=== PATIENT | female | born 1960 | race Caucasian/White ===

== ENCOUNTER 2017-05-13 19:08 | Emergency (ER) | payer SELFPAY ==
[2017-05-13] MEDS ORDERED: Aluminum Hydroxide/Magnesium Hydroxide Susp 30 ML Cup PO STA (19:34)
[2017-05-13] MEDS ORDERED: Polyethylene Glycol 3350 Powder 17 GM Packet PO ONE (19:41)
--- NOTE | 2017-05-13 19:47 | EDM.PDOC ---
ED HPI GENERAL MEDICAL PROBLEM - General Chief Complaint: Abdominal Pain Stated Complaint: ADB PAIN Time Seen by Provider: 05/13/17 19:30 Source of Information: Reports: Patient, Old Records History Limitations: Reports: No Limitations - History of Present Illness INITIAL COMMENTS - FREE TEXT/NARRATIVE: 57 yo obese female presents with epigastric to RUQ abdominal pain that began a couple hrs after eating at a [employer] today. No fever. Some nausea , now resolved. Has some mild constipation. Had been on omeprazole for GERD and had not taken it for a month until shortly before coming in to the ER tonight. Is feeling better on arrival with her pain down to a 1-2/10. Has had a pHx of RUQ abdominal pains for which she had a GB US that was negative. Has not had a HIDA scan or a surgical consult. Still has her gallbladder. Pain was intense for about 30 minutes. Onset: Today Onset Date: 05/13/17 Onset Time: 18:35 Duration: Minutes: Location: Reports: Abdomen (RUQ to epigastrium) Quality: Reports: Ache, Pressure Severity: Moderate Improves with: Reports: Other (Time? vs. ) Worsens with: Reports: Eating (? came on after eating.) Context: Reports: Other (Many risk factors for biliary dz. 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) (took a dose of her PPI) Epigastric pain Pain Score (Numeric/FACES): 3 - Related Data Allergies Allergy/AdvReac Type Severity Reaction Status Date / Time No Known Allergies Allergy Verified 10/02/16 05:39 Home Meds: Home Meds Ibuprofen 400 mg PO DAILY 05/13/17 [History] Omeprazole 20 mg DAILY 05/13/17 [History] atorvaSTATin [Lipitor] 10 mg PO BEDTIME 05/13/17 [History] metFORMIN [Glucophage XR] 500 mg PO BEDTIME 05/13/17 [History] Past Medical History Cardiovascular History: Reports: High Cholesterol Gastrointestinal History: Reports: Gastritis, GERD Genitourinary History: Reports: 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: Musculoskeletal History: Reports: Arthritis Endocrine/Metabolic History: Reports: Diabetes, Type II, Obesity/BMI 30+ - Infectious Disease History Infectious Disease History: Reports: Chicken Pox - Past Surgical History GI Surgical History: Reports: EGD Female Surgical History: Reports: Tubal Ligation Social & Family History - Family History Family Medical History: Noncontributory - Tobacco Use Smoking Status *Q: Never Smoker - Caffeine Use Caffeine Use: Reports: Soda - Recreational Drug Use Recreational Drug Use: No ED ROS GENERAL - Review of Systems Review Of Systems: See Below Constitutional: Reports: No Symptoms HEENT: Reports: No Symptoms Respiratory: Reports: No Symptoms Cardiovascular: Reports: No Symptoms GI/Abdominal: Reports: Abdominal Pain, Constipation, Nausea. Denies: Black Stool, Bloody Stool, Diarrhea, Distension, Hematemesis, Hematochezia, Melena, Stool Incontinence, Vomiting : Reports: No Symptoms Musculoskeletal: Reports: No Symptoms Skin: Reports: No Symptoms Neurological: Reports: No Symptoms ED EXAM, GI/ABD - Physical Exam Exam: See Below Exam Limited By: No Limitations General Appearance: Alert, WD/WN, No Apparent Distress, Obese Eyes: Bilateral: Normal Appearance Ears: Normal External Exam, Normal Canal, Hearing Grossly Normal Nose: Normal Inspection, Normal Mucosa, No Blood Throat/Mouth: Normal Inspection, Normal Lips, Normal Teeth, Normal Oropharynx, Normal Voice, No Airway Compromise Head: Atraumatic, Normocephalic Neck: Normal Inspection, Supple, Non-Tender Respiratory/Chest: No Respiratory Distress, Lungs Clear, Normal Breath Sounds, No Accessory Muscle Use, Chest Non-Tender Cardiovascular: Regular Rate, Rhythm, No Edema GI/Abdominal: Normal Bowel Sounds, Soft, No Distention, Tenderness (mild tenderness just to the R of the epigastrium.). No: Distention, Guarding, Rebound, Rigidity, Hepatomegaly, Splenomegaly, Hernia Back Exam: Normal Inspection Extremities: Normal Inspection, Normal Range of Motion, Non-Tender, No Pedal Edema Neurological: Alert, Oriented, CN II-XII Intact, Normal Cognition, No Motor/ Sensory Deficits Psychiatric: Normal Affect, Normal Mood Skin Exam: Warm, Dry, Intact, Normal Color, No Rash Lymphatic: No Adenopathy Course - Vital Signs Text/Narrative:: Maalox 30 ml po, Miralax 34 gm po Last Recorded V/S: Last Vital Signs Temp 36.5 C 05/13/17 19:09 Pulse 84 05/13/17 19:09 Resp 18 05/13/17 19:09 BP 147/76 H 05/13/17 19:09 Pulse Ox 100 05/13/17 19:09 - Orders/Labs/Meds Labs: Laboratory Tests 05/13/17 05/13/17 Range/Units 19:45 19:45 WBC 7.9 (4.5-12.0) X10-3/uL RBC 5.09 (3.23-5.20) x10(6)uL Hgb 13.7 (11.5-15.5) g/dL Hct 40.4 (30.0-51.3) % MCV 79.4 L (80-96) fL MCH 26.9 L (27.7-33.6) pg MCHC 33.9 (32.2-35.4) g/dL RDW 14.5 (11.5-15.5) % Plt Count 198 (125-369) X10(3)uL Sodium 136 (135-145) mmol/L Potassium 3.7 (3.5-5.3) mmol/L Chloride 104 (100-110) mmol/L Carbon Dioxide 25 (23-29) mmol/L BUN 16 (5-20) mg/dL Creatinine 0.5 L (0.6-1.3) mg/dL Est Cr Clr Drug Dosing 93.67 mL/min Estimated GFR (MDRD) > 60 (>60) BUN/Creatinine Ratio 32.0 H (9-20) Glucose 146 H (80-116) mg/dL Calcium 9.6 (8.6-10.2) mg/dL Total Bilirubin 0.5 (0.1-1.3) mg/dL AST 21 (5-27) IU/L ALT 21 (14-26) IU/L Alkaline Phosphatase 105 (56-112) IU/L Total Protein 7.6 (6.0-8.0) g/dL Albumin 4.3 (3.5-5.2) g/dL Globulin 3.3 g/dL Albumin/Globulin Ratio 1.3 Meds: Medications Discontinued Medications Generic Name Dose Route Start Last Admin Trade Name Freq PRN Reason Stop Dose Admin Al Hydroxide/Mg Hydroxide 30 ml 05/13/17 19:34 05/13/17 19:43 Mag-Al Susp PO 05/13/17 19:35 30 ml NOW STA Administration Polyethylene Glycol 34 gm 05/13/17 19:41 05/13/17 19:48 Miralax PO 05/13/17 19:42 34 gm ONETIME ONE Administration Departure - Departure Time of Disposition: 20:11 Disposition: Home, Self-Care 01 Condition: Good Clinical Impression: RUQ abdominal pain - Discharge Information Forms: ED Department Discharge
[2017-05-13 20:27] VITALS: BP 152/74
== END 2017-05-13 20:22 | disposition home or self-care (01) ==
LOC: FB.ED 19:08
DX: R10.11 Right upper quadrant pain (principal); M19.90 Unspecified osteoarthritis, unspecified site; E11.9 Type 2 diabetes mellitus without complications; E66.9 Obesity, unspecified; Z68.42 Body mass index [BMI] 45.0-49.9, adult; E78.00 Pure hypercholesterolemia, unspecified; K21.9 Gastro-esophageal reflux disease without esophagitis; Z98.51 Tubal ligation status; Z79.899 Other long term (current) drug therapy
CPT/HCPCS: 36415; 80053; 85027; 99284; A9270; 99283

== ENCOUNTER 2019-03-27 22:28 | Observation (INO) | payer SELFPAY ==
[2019-03-27] MEDS ORDERED: Ondansetron 8 MG Tab.DIS PO ONE (22:47)
[2019-03-27] MEDS ORDERED: Alum Hydroxide/Mag Hydroxide 15 ML, Lidocaine 2% 15 ML PO STA ×2 (22:48)
--- NOTE | 2019-03-27 22:54 | EDM.PDOC ---
ED HPI GENERAL MEDICAL PROBLEM - General Stated Complaint: STOMACH PAIN Time Seen by Provider: 03/27/19 22:28 Source of Information: Reports: Patient History Limitations: Reports: No Limitations - History of Present Illness INITIAL COMMENTS - FREE TEXT/NARRATIVE: 59 y.o. female came with her son to the ED due to sudden onset of RUQ and and mid upper abdominal pain with nausea, no vomiting. The pain goes around her right flank into her back. Last food intake at 6 pm. Pt had "female part surgery" in the past. No F/C, no trauma. Pt did not take any meds [employer]. Pt has 10 /10 pain at her RUQ of her abdomen, unable to find a comfortable position to help her pain. No CP, no SOB no other acute med issues. BP 141/83 RR 20 Pulse ox 100% on RA Temp 36.6 Pulse 70 Onset Date: 03/27/19 Onset Time: 20:00 Duration: Hour(s):, Getting Worse, Intermittent Location: Reports: Abdomen (epigastric, RUQ of abdomen) Quality: Reports: Burning, Dull Severity: Moderate Improves with: Reports: Medication Worsens with: Reports: Movement Context: Reports: Other Associated Symptoms: Reports: Loss of Appetite, Nausea/Vomiting Upper Abdomen Pain Score (Numeric/FACES): 5 - Related Data Allergies Allergy/AdvReac Type Severity Reaction Status Date / Time No Known Allergies Allergy Verified 03/27/19 23:18 Home Meds: Home Meds Ibuprofen 400 mg PO DAILY PRN 05/13/17 [History] Omeprazole 20 mg PO DAILY 05/13/17 [History] atorvaSTATin [Lipitor] 10 mg PO BEDTIME 05/13/17 [History] metFORMIN [Glucophage XR] 500 mg PO BEDTIME 05/13/17 [History] Past Medical History Cardiovascular History: Reports: High Cholesterol Gastrointestinal History: Reports: Gastritis, GERD Genitourinary History: Reports: None 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: Musculoskeletal History: Reports: Arthritis Endocrine/Metabolic History: Reports: Diabetes, Type II, Obesity/BMI 30+ - Infectious Disease History Infectious Disease History: Reports: Chicken Pox - Past Surgical History GI Surgical History: Reports: EGD Female Surgical History: Reports: Tubal Ligation Social & Family History - Family History Family Medical History: Noncontributory - Caffeine Use Caffeine Use: Reports: Soda ED ROS GENERAL - Review of Systems Review Of Systems: See Below Constitutional: Reports: No Symptoms HEENT: Reports: No Symptoms Respiratory: Reports: No Symptoms Cardiovascular: Reports: No Symptoms Endocrine: Reports: No Symptoms GI/Abdominal: Reports: Abdominal Pain : Reports: No Symptoms Musculoskeletal: Reports: No Symptoms Skin: Reports: No Symptoms Neurological: Reports: No Symptoms Psychiatric: Reports: No Symptoms Hematologic/Lymphatic: Reports: No Symptoms Immunologic: Reports: No Symptoms ED EXAM, GI/ABD - Physical Exam Exam: See Below Exam Limited By: No Limitations General Appearance: Alert, Moderate Distress, Obese (morbid) Eyes: Bilateral: Normal Appearance Ears: Normal External Exam Nose: Normal Inspection, Normal Mucosa Throat/Mouth: Normal Inspection, Normal Lips, Normal Voice, No Airway Compromise Head: Atraumatic, Normocephalic Neck: Normal Inspection, Supple, Non-Tender, Full Range of Motion Respiratory/Chest: No Respiratory Distress, Lungs Clear, Normal Breath Sounds, Chest Non-Tender Cardiovascular: Normal Peripheral Pulses, Regular Rate, Rhythm GI/Abdominal Exam: Tender (RUQ of abd. epigasric pain) (Female) Exam: Deferred Rectal (Female) Exam: Deferred Back Exam: Normal Inspection Extremities: Normal Inspection, Normal Range of Motion Neurological: Alert, Oriented, CN II-XII Intact, Normal Cognition Psychiatric: Normal Affect, Normal Mood Skin Exam: Warm, Dry, Intact, Normal Color Lymphatic: No Adenopathy Course - Vital Signs Text/Narrative:: 59 y.o. female came with her son to the ED due to sudden onset of RUQ and and mid upper abdominal pain with nausea, no vomiting. The pain goes around her right flank into her back. Last food intake at 6 pm. Pt had "female part surgery" in the past. No F/C, no trauma. Pt did not take any meds [employer]. Pt has 10 /10 pain at her RUQ of her abdomen, unable to find a comfortable position to help her pain. No CP, no SOB no other acute med issues. BP 141/83 RR 20 Pulse ox 100% on RA Temp 36.6 Pulse 70 PE: Obese 59 y.o. F with acute Mid upper and R upper abd.pain, no fever Imaging: US abd. limited: Cholelithiasis with distended gallbladder, GB wall prominence, pos Dhillon's sign, suggestive early cholecystitis CT abd: Distended GB, Hepatic Steatosis, old granulomatous disease Labs: WBC 12.1 LFT's nl, Alk phos was 120, however Impression: Cholelithiasis with early cholecystitis Tx: Gi cocktail, Zofran, Zosyn, Toradol, Dilaudid 1.30 am Consultation: , Surgeon: If pain free: D/C. 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 \\ Reexam: Christiano is better after 2 mg of Dilaudid Plan: Admit to Hospitalist, meds/surge Last Recorded V/S: Last Vital Signs Temp 36.8 C 03/28/19 08:00 Pulse 80 03/28/19 08:00 Resp 18 03/28/19 08:00 BP 129/71 03/28/19 08:00 Pulse Ox 92 L 03/28/19 08:00 - Orders/Labs/Meds Orders: Active Orders 24 hr Category Date Time Status Abdomen Ltd [US] Stat Exams 03/27/19 22:55 Taken Abdomen wo Cont [CT] Stat Exams 03/27/19 23:40 Taken Piperacillin/Tazobactam [Zosyn] 3.375 gm Med 03/28/19 01:45 Active Sodium Chloride 0.9% [Normal Saline] 50 ml IV Q6H Sodium Chloride 0.9% [Saline Flush] Med 03/28/19 01:37 Active 10 ml FLUSH ASDIRECTED PRN Peripheral IV Insertion Adult [OM.PC] Routine Oth 03/28/19 01:37 Ordered Medication Orders Piperacillin Sod/Tazobactam (Sod 3.375 gm/ Sodium Chloride) 50 mls @ 100 mls/ hr IV Q6H [facility] Last Admin: 03/28/19 08:19 Dose: 100 mls/hr Admin: 03/28/19 02:20 Dose: 100 mls/hr Morphine Sulfate (Morphine) 1 mg IVPUSH Q2H PRN PRN Reason: Pain (severe 7-10) Last Admin: 03/28/19 08:16 Dose: 1 mg Sodium Chloride (Saline Flush) 10 ml FLUSH ASDIRECTED PRN PRN Reason: Keep Vein Open Last Admin: 03/28/19 08:18 Dose: 10 ml Labs: Laboratory Tests 03/27/19 03/27/19 03/27/19 Range/Units 22:50 22:50 22:50 WBC 12.1 H (4.5-12.0) X10-3/uL RBC 5.22 H (3.23-5.20) x10(6)uL Hgb 14.0 (11.5-15.5) g/dL Hct 42.3 (30.0-51.3) % MCV 81.0 (80-96) fL MCH 26.9 L (27.7-33.6) pg MCHC 33.2 (32.2-35.4) g/dL RDW 14.4 (11.5-15.5) % Plt Count 220 (125-369) X10(3)uL MPV 11.3 H (7.4-10.4) fL Neut % (Auto) 62.0 (46-82) % Lymph % (Auto) 28.6 (13-37) % [place] % (Auto) 5.9 (4-12) % Eos % (Auto) 3 (1.0-5.0) % Baso % (Auto) 0 (0-2) % Neut # (Auto) 7.5 (1.6-8.3) # Lymph # (Auto) 3.5 (0.6-5.0) # [place] # (Auto) 0.7 (0.0-1.3) # Eos # (Auto) 0.4 (0.0-0.8) # Baso # (Auto) 0.0 (0.0-0.2) # Sodium 139 (135-145) mmol/L Potassium 4.0 (3.5-5.3) mmol/L Chloride 102 (100-110) mmol/L Carbon Dioxide 29 (21-32) mmol/L BUN 18 (7-18) mg/dL Creatinine 0.6 (0.55-1.02) mg/dL Est Cr Clr Drug Dosing TNP Estimated GFR (MDRD) > 60 (>60) BUN/Creatinine Ratio 30.0 H (9-20) Glucose 145 H (80-116) mg/dL Lactic Acid 1.4 (0.4-2.2) mmol/L Calcium 9.5 (8.6-10.2) mg/dL Total Bilirubin 0.5 (0.1-1.3) mg/dL Direct Bilirubin 0.13 (0.10-0.20) mg/dL AST 14 (5-25) IU/L ALT 26 (12-36) U/L Alkaline Phosphatase 120 H (56-112) IU/L Total Protein 7.6 (6.0-8.0) g/dL Albumin 4.0 (3.5-5.2) g/dL Amylase 32 (25-115) U/L Meds: Medications Generic Name Dose Route Start Last Admin Trade Name Amosq PRN Reason Stop Dose Admin Piperacillin Sod/Tazobactam 50 mls @ 100 mls/hr 03/28/19 01:45 03/28/19 08:19 Sod 3.375 gm/ Sodium Chloride IV 100 mls/hr Q6H [facility] Administration Morphine Sulfate 1 mg 03/28/19 03:06 03/28/19 08:16 Morphine IVPUSH 1 mg Q2H PRN Administration Pain (severe 7-10) Sodium Chloride 10 ml 03/28/19 01:37 03/28/19 08:18 Saline Flush FLUSH 10 ml ASDIRECTED PRN Administration Keep Vein Open Discontinued Medications Generic Name Dose Route Start Last Admin Trade Name Amosq PRN Reason Stop Dose Admin Al Hydroxide/Mg Hydroxide 15 0 ml 03/27/19 22:48 03/27/19 22:55 ml/ Lidocaine HCl 15 ml PO 03/27/19 22:49 30 ml ONETIME STA Administration Hydromorphone HCl 1 mg 03/28/19 00:25 03/28/19 00:31 Dilaudid IM 03/28/19 00:26 1 mg ONETIME STA Administration Hydromorphone HCl 2 mg 03/28/19 01:40 03/28/19 02:00 Dilaudid IM 03/28/19 01:41 2 mg ONETIME ONE Administration Ketorolac Tromethamine 60 mg 03/27/19 23:54 03/27/19 23:59 Toradol IM 03/27/19 23:55 60 mg ONETIME ONE Administration Ondansetron HCl 8 mg 03/27/19 22:47 03/27/19 22:55 Zofran Odt PO 03/27/19 22:48 8 mg ONETIME ONE Administration Departure - Departure Time of Disposition: 02:54 Disposition: Admitted As Inpatient 66 Condition: Good Clinical Impression: Cholelithiasis and cholecystitis without obstruction Qualifiers: Cholelithiasis location: gallbladder Cholecystitis acuity: unspecified acuity Qualified Code(s): K80.10 - Calculus of gallbladder with chronic cholecystitis without obstruction - Discharge Information - My Orders Last 24 Hours: My Active Orders 03/27/19 22:55 Abdomen Ltd [US] Stat 03/27/19 23:40 Abdomen wo Cont [CT] Stat 03/28/19 01:37 Sodium Chloride 0.9% [Saline Flush] 10 ml FLUSH ASDIRECTED PRN Peripheral IV Insertion Adult [OM.PC] Routine 03/28/19 01:45 Piperacillin/Tazobactam [Zosyn] 3.375 gm Sodium Chloride 0.9% [Normal Saline] 50 ml IV Q6H - Assessment/Plan Last 24 Hours: My Active Orders 03/27/19 22:55 Abdomen Ltd [US] Stat 03/27/19 23:40 Abdomen wo Cont [CT] Stat 03/28/19 01:37 Sodium Chloride 0.9% [Saline Flush] 10 ml FLUSH ASDIRECTED PRN Peripheral IV Insertion Adult [OM.PC] Routine 03/28/19 01:45 Piperacillin/Tazobactam [Zosyn] 3.375 gm Sodium Chloride 0.9% [Normal Saline] 50 ml IV Q6H
[2019-03-27] MEDS ORDERED: Ketorolac 60 MG/2 ML SDV IM ONE (23:54)
[2019-03-28] MEDS ORDERED: HYDROmorphone 2 MG/ML SDV IM STA (00:25)
[2019-03-28] MEDS ORDERED: HYDROmorphone 2 MG/ML SDV IM ONE (01:40)
[2019-03-28] MEDS: Piperacillin/Tazobactam 3.375 GM in Sodium Chloride 0.9% 50 ML IV SCH ×4 (02:20→20:01)
[2019-03-28] MEDS ORDERED: Morphine 2 MG/ML Syringe IVPUSH PRN ×2 (03:06→13:27)
[2019-03-28] MEDS: Sodium Chloride 0.9% 10 ML Syringe FLUSH PRN ×5 (08:18→20:29)
[2019-03-28] MEDS ORDERED: Succinylcholine 200 MG/10 ML MDV IV ONE (08:54)
[2019-03-28] MEDS ORDERED: Glycopyrrolate 0.2 MG/ML 5 ML MDV IV ONE (08:54)
[2019-03-28] MEDS ORDERED: fentaNYL 100 MCG/2 ML SDV IV ONE (08:54)
[2019-03-28] MEDS ORDERED: Midazolam 1 MG/ML 2 ML SDV IV ONE (08:54)
[2019-03-28] MEDS ORDERED: Propofol 200 MG/20 ML SDV IV ONE (08:54)
[2019-03-28] MEDS ORDERED: Rocuronium 100 MG/10 ML MDV IV ONE (08:54)
[2019-03-28] MEDS ORDERED: Dexamethasone 4 MG/ML 5 ML MDV IVPUSH ONE (08:54)
[2019-03-28] MEDS ORDERED: Lactated Ringers 1,000 ML IV ONE ×2 (08:54→10:32)
[2019-03-28] MEDS ORDERED: Ondansetron 4 MG/2 ML SDV IVPUSH ONE (08:54)
[2019-03-28] MEDS ORDERED: diphenhydrAMINE 50 MG/ML SDV IVPUSH ONE (08:54)
[2019-03-28] MEDS ORDERED: Neostigmine Methylsulfate 10 MG/10 ML MDV IVPUSH ONE (08:54)
[2019-03-28] MEDS ORDERED: Lactated Ringers 1,000 ML IV SCH (10:45)
--- NOTE | 2019-03-28 10:50 | PCM.CONS ---
H&P History of Present Illness - General Date of Service: 03/28/19 Admit Problem/Dx: Admission Diagnosis/Problem Admission Diagnosis/Problem Cholecystitis Source of Information: Patient History Limitations: Reports: No Limitations - History of Present Illness Initial Comments - Free Text/Narative: RUQ pain started again after having ribs last night. Presented to the ED and US and CT show cholecystitis and Cholelithiasis Onset of Symptoms: Reports: Gradual Duration of Symptoms: Reports: Other (Gradually worsening over the past 5 years ; not going away this time) Location: Reports: Abdomen (RUQ) Severity: Severe Improves with: Reports: None Upper Abdomen Pain Score (Numeric/FACES): 5 - Related Data Allergies/Adverse Reactions: Allergies Allergy/AdvReac Type Severity Reaction Status Date / Time No Known Allergies Allergy Verified 03/27/19 23:18 Home Medications: Home Meds Ibuprofen 400 mg PO DAILY PRN 05/13/17 [History] Omeprazole 20 mg PO DAILY 05/13/17 [History] atorvaSTATin [Lipitor] 10 mg PO BEDTIME 05/13/17 [History] metFORMIN [Glucophage XR] 500 mg PO BEDTIME 05/13/17 [History] Past Medical History Cardiovascular History: Reports: High Cholesterol Gastrointestinal History: Reports: Gastritis, GERD Genitourinary History: Reports: 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: Musculoskeletal History: Reports: Arthritis Endocrine/Metabolic History: Reports: Diabetes, Type II, Obesity/BMI 30+ - Infectious Disease History Infectious Disease History: Reports: Chicken Pox - Past Surgical History GI Surgical History: Reports: EGD Female Surgical History: Reports: Tubal Ligation Social & Family History - Family History Family Medical History: Noncontributory - Tobacco Use Smoking Status *Q: Never Smoker Second Hand Smoke Exposure: Yes - Caffeine Use Caffeine Use: Reports: Soda - Recreational Drug Use Recreational Drug Use: No H&P Review of Systems - Review of Systems: Review Of Systems: See Below Pulmonary: Reports: No Symptoms Cardiovascular: Reports: No Symptoms Genitourinary: Reports: No Symptoms Exam - Exam Exam: See Below - Vital Signs Vital Signs: Last Vital Signs Temp 98.2 F 03/28/19 08:00 Pulse 80 03/28/19 08:00 Resp 18 03/28/19 08:00 BP 129/71 03/28/19 08:00 Pulse Ox 92 L 03/28/19 08:00 Weight: 108.607 kg - Exam General: Alert, Oriented Lungs: Clear to Auscultation, Normal Respiratory Effort Cardiovascular: Regular Rate, Regular Rhythm GI/Abdominal Exam: Soft, Tender (in RUQ) - Patient Data Lab Results Last 24 hrs: Laboratory Results - last 24 hr 03/27/19 03/27/19 03/27/19 Range/Units 22:50 22:50 22:50 WBC 12.1 H (4.5-12.0) X10-3/uL RBC 5.22 H (3.23-5.20) x10(6)uL Hgb 14.0 (11.5-15.5) g/dL Hct 42.3 (30.0-51.3) % MCV 81.0 (80-96) fL MCH 26.9 L (27.7-33.6) pg MCHC 33.2 (32.2-35.4) g/dL RDW 14.4 (11.5-15.5) % Plt Count 220 (125-369) X10(3)uL MPV 11.3 H (7.4-10.4) fL Neut % (Auto) 62.0 (46-82) % Lymph % (Auto) 28.6 (13-37) % [place] % (Auto) 5.9 (4-12) % Eos % (Auto) 3 (1.0-5.0) % Baso % (Auto) 0 (0-2) % Neut # (Auto) 7.5 (1.6-8.3) # Lymph # (Auto) 3.5 (0.6-5.0) # [place] # (Auto) 0.7 (0.0-1.3) # Eos # (Auto) 0.4 (0.0-0.8) # Baso # (Auto) 0.0 (0.0-0.2) # Sodium 139 (135-145) mmol/L Potassium 4.0 (3.5-5.3) mmol/L Chloride 102 (100-110) mmol/L Carbon Dioxide 29 (21-32) mmol/L BUN 18 (7-18) mg/dL Creatinine 0.6 (0.55-1.02) mg/dL Est Cr Clr Drug Dosing TNP Estimated GFR (MDRD) > 60 (>60) BUN/Creatinine Ratio 30.0 H (9-20) Glucose 145 H (80-116) mg/dL Lactic Acid 1.4 (0.4-2.2) mmol/L Calcium 9.5 (8.6-10.2) mg/dL Total Bilirubin 0.5 (0.1-1.3) mg/dL Direct Bilirubin 0.13 (0.10-0.20) mg/dL AST 14 (5-25) IU/L ALT 26 (12-36) U/L Alkaline Phosphatase 120 H (56-112) IU/L Total Protein 7.6 (6.0-8.0) g/dL Albumin 4.0 (3.5-5.2) g/dL Amylase 32 (25-115) U/L Result Diagrams: 03/27/19 22:50 03/27/19 22:50 Imaging Impressions Last 24 hrs: CT and US reviewed Consult PN Assessment/Plan Procedures: Procedures C-REACTIVE PROTEIN (10/02/16) COMPLETE CBC AUTOMATED (05/13/17) COMPREHEN METABOLIC PANEL (05/13/17) CT LOWER EXTREMITY W/O DYE (10/02/16) EMERGENCY DEPT VISIT (05/13/17) EMERGENCY DEPT VISIT (10/02/16) ROUTINE VENIPUNCTURE (05/13/17) THER/PROPH/DIAG INJ SC/IM (10/02/16) X-RAY EXAM HIP UNI 2-3 VIEWS (10/02/16) (1) Cholelithiasis and cholecystitis without obstruction SNOMED Code(s): 09936080 Code(s): K80.10 - CALCULUS OF GALLBLADDER W CHRONIC CHOLECYST W/O OBSTRUCTION Current Visit: Yes Qualifiers: Cholelithiasis location: gallbladder Cholecystitis acuity: unspecified acuity Qualified Code(s): K80.10 - Calculus of gallbladder with chronic cholecystitis without obstruction Problem List Initiated/Reviewed/Updated: Yes My Orders Last 24 Hours: My Active Orders 03/28/19 10:32 Lactated Ringers [Ringers, Lactated] 1,000 ml IV BOLUS 03/28/19 10:45 Lactated Ringers [Ringers, Lactated] 1,000 ml IV ASDIRECTED Plan: Will proceed with lap barb today. reviewed the procedure, risks and complications. Consent obtained
[2019-03-28] MEDS ORDERED: Acetaminophen/HYDROcodone 325-5 MG Tab PO PRN (13:25)
--- NOTE | 2019-03-28 13:25 | PCM.OPNOTE ---
- General Post-Op/Procedure Note Date of Surgery/Procedure: 03/28/19 Operative Procedure(s): Lap Maggy Findings: above Pre Op Diagnosis: Acute cholecystitis and Cholelithiasis Post-Op Diagnosis: Same Anesthesia Technique: General ET Tube Primary Surgeon: Sage Addison Anesthesia Provider: Nasreen Harvey Pathology: GB EBL in mLs: 25 Complications: none Condition: Stable
--- NOTE | 2019-03-28 16:02 | OR ---
DATE OF OPERATION: 03/28/2019 SURGEON: Sage Addison MD PREOPERATIVE DIAGNOSES: Acute cholecystitis and cholelithiasis. POSTOPERATIVE DIAGNOSES: Acute cholecystitis and cholelithiasis. PROCEDURE: Laparoscopic cholecystectomy. ANESTHESIA: General. PROCEDURE IN DETAIL: The patient was brought to the operating room where general endotracheal anesthesia was administered. Her abdomen was prepped with ChloraPrep and draped sterilely. An infraumbilical incision was made and extended into the peritoneal cavity without difficulty. The Alexia cannulator was introduced and pneumoperitoneum obtained. The remaining three 5 mm ports were placed in the usual positions. The patient was placed in reverse Trendelenburg position and rotated to the left. The gallbladder was large, tense, and firm, and could not be grasped. Therefore, it was aspirated with the trocar and 90 mL of yellowish bile removed. Some of this was sent for culture. The gallbladder was then grasped and retracted cephalad. There was a fair amount of inflammation present at the base of the gallbladder that was carefully dissected free with blunt dissection, and connective tissue cauterized with electrocautery. The cystic duct and an enlarged cystic duct node were present that was doubly clipped proximally and once distally and then transected. This aided in visualization of the lower portion of the gallbladder. I was able to isolate the cystic duct circumferentially and dissect the base of the gallbladder free. The cystic duct was milked back into the gallbladder. The cystic duct was then doubly clipped proximally and once distally and then transected. A small stone fragment was present in the cystic duct that was suctioned. The gallbladder was then removed from the bed of the liver which was fairly difficult because of being fairly densely adhesed and plane not always clear to see. This was removed eventually and a posterior branch of the cystic artery was doubly clipped proximally and distally and then transected. No bile leakage occurred during removal of the gallbladder. This was then brought out through the umbilical port site. The right upper quadrant was thoroughly irrigated and inspected. There was some oozing that was controlled with electrocautery near the fundus where the gallbladder was. I did place a Nu-Knit Surgicel here. Ports were removed under direct vision and remained hemostatic. Umbilical fascia was closed with [id number] 0 Vicryl. Skin was closed with 4-0 Vicryl subcuticular sutures. Benzoin and Steri-Strips were placed and Band- Aids applied. The patient tolerated the procedure well. Estimated blood loss 25 mL. She returned to Postanesthesia in stable condition. /[id number] JOSS/CLARY
[2019-03-28] MEDS: Lactated Ringers 1,000 ML IV SCH (19:40)
[2019-03-29] MEDS: Piperacillin/Tazobactam 3.375 GM in Sodium Chloride 0.9% 50 ML IV SCH ×2 (02:17→07:52)
[2019-03-29] MEDS: Sodium Chloride 0.9% 10 ML Syringe FLUSH PRN ×3 (02:17→07:53)
[2019-03-29] MEDS ORDERED: Acetaminophen 325 MG Tab PO PRN (04:24)
[2019-03-29] MEDS: Lactated Ringers 1,000 ML IV SCH (06:01)
--- NOTE | 2019-03-29 07:13 | PCM.SURGPN ---
- General Info Date of Service: 03/29/19 POD#: 1 Functional Status: Reports: Pain Controlled, Tolerating Diet, Ambulating, Urinating - Review of Systems General: Reports: No Symptoms Gastrointestinal: Reports: No Symptoms. Denies: Abdominal Pain - Patient Data Vitals - Most Recent: Last Vital Signs Temp 99.1 F 03/29/19 04:20 Pulse 80 03/29/19 04:20 Resp 16 03/29/19 04:20 BP 89/47 L 03/29/19 04:20 Pulse Ox 91 L 03/29/19 04:20 Weight - Most Recent: 108.607 kg I&O - Last 24 Hours: Intake & Output 03/28/19 03/29/19 03/29/19 22:59 06:59 14:59 Intake Total 1050 908 Balance 1050 908 Med Orders - Current: Current Medications Acetaminophen (Tylenol) 650 mg PO Q4H PRN PRN Reason: Pain Last Admin: 03/29/19 04:40 Dose: 650 mg Hydrocodone Bitart/Acetaminophen ([place] 325-5 Mg) 1 tab PO Q4H PRN PRN Reason: Pain (mild 1-3) Piperacillin Sod/Tazobactam (Sod 3.375 gm/ Sodium Chloride) 50 mls @ 100 mls/ hr IV Q6H [facility] Last Admin: 03/29/19 02:17 Dose: 100 mls/hr Lactated Ringer's (Ringers, Lactated) 1,000 mls @ 125 mls/hr IV ASDIRECTED [facility] Last Admin: 03/29/19 06:01 Dose: 125 mls/hr Morphine Sulfate (Morphine) 2 mg IVPUSH Q2H PRN PRN Reason: Pain (severe 7-10) Sodium Chloride (Saline Flush) 10 ml FLUSH ASDIRECTED PRN PRN Reason: Keep Vein Open Last Admin: 03/29/19 02:50 Dose: 10 ml Discontinued Medications Al Hydroxide/Mg Hydroxide 15 (ml/ Lidocaine HCl 15 ml) 0 ml PO ONETIME STA Stop: 03/27/19 22:49 Last Admin: 03/27/19 22:55 Dose: 30 ml Hydromorphone HCl (Dilaudid) 1 mg IM ONETIME STA Stop: 03/28/19 00:26 Last Admin: 03/28/19 00:31 Dose: 1 mg Hydromorphone HCl (Dilaudid) 2 mg IM ONETIME ONE Stop: 03/28/19 01:41 Last Admin: 03/28/19 02:00 Dose: 2 mg Lactated Ringer's (Ringers, Lactated) 1,000 mls @ 150 mls/hr IV ASDIRECTED [place] Lactated Ringer's (Ringers, Lactated) 1,000 mls @ 999 mls/hr IV BOLUS ONE Stop: 03/28/19 11:32 Last Admin: 03/28/19 10:49 Dose: 999 mls/hr Ketorolac Tromethamine (Toradol) 60 mg IM ONETIME ONE Stop: 03/27/19 23:55 Last Admin: 03/27/19 23:59 Dose: 60 mg Morphine Sulfate (Morphine) 1 mg IVPUSH Q2H PRN PRN Reason: Pain (severe 7-10) Last Admin: 03/28/19 08:16 Dose: 1 mg Ondansetron HCl (Zofran Odt) 8 mg PO ONETIME ONE Stop: 03/27/19 22:48 Last Admin: 03/27/19 22:55 Dose: 8 mg - Exam Wound/Incisions: Healing Well, Dressing Dry and Intact GI/Abdominal Exam: Soft, Non-Tender - Problem List & Annotations (1) Cholelithiasis and cholecystitis without obstruction SNOMED Code(s): 53859807 Code(s): K80.10 - CALCULUS OF GALLBLADDER W CHRONIC CHOLECYST W/O OBSTRUCTION Status: Acute Current Visit: Yes Qualifiers: Cholelithiasis location: gallbladder Cholecystitis acuity: unspecified acuity Qualified Code(s): K80.10 - Calculus of gallbladder with chronic cholecystitis without obstruction - Problem List Review Problem List Initiated/Reviewed/Updated: Yes - My Orders Last 24 Hours: Active Orders 24 hr Category Date Time Status May Shower [RC] ASDIRECTED Care 03/28/19 13:25 Active Oxygen Therapy [RC] PRN Care 03/28/19 13:25 Active RT Incentive Spirometry [RC] Q2HWA Care 03/28/19 13:25 Active Ready for Discharge [RC] PER UNIT ROUTINE Care 03/29/19 07:11 Ordered Vital Signs [RC] PER UNIT ROUTINE Care 03/28/19 13:25 Active Clear Liquid Diet [DIET] Diet 03/28/19 Dinner Active CULTURE ANAEROBIC [RM] Routine Lab 03/28/19 12:21 Ordered CULTURE ROUTINE + SMEAR [RM] Routine Lab 03/28/19 12:21 Ordered Acetaminophen [Tylenol] Med 03/29/19 04:24 Active 650 mg PO Q4H PRN Acetaminophen/HYDROcodone [[place] 325-5 MG] Med 03/28/19 13:25 Active 1 tab PO Q4H PRN Lactated Ringers [Ringers, Lactated] 1,000 ml Med 03/28/19 13:30 Active IV ASDIRECTED Morphine Med 03/28/19 13:27 Active 2 mg IVPUSH Q2H PRN Medication Orders Acetaminophen (Tylenol) 650 mg PO Q4H PRN PRN Reason: Pain Last Admin: 03/29/19 04:40 Dose: 650 mg Hydrocodone Bitart/Acetaminophen ([place] 325-5 Mg) 1 tab PO Q4H PRN PRN Reason: Pain (mild 1-3) Piperacillin Sod/Tazobactam (Sod 3.375 gm/ Sodium Chloride) 50 mls @ 100 mls/ hr IV Q6H [facility] Last Admin: 03/29/19 02:17 Dose: 100 mls/hr Admin: 03/28/19 20:01 Dose: 100 mls/hr Admin: 03/28/19 14:28 Dose: 100 mls/hr Admin: 03/28/19 08:19 Dose: 100 mls/hr Admin: 03/28/19 02:20 Dose: 100 mls/hr Lactated Ringer's (Ringers, Lactated) 1,000 mls @ 125 mls/hr IV ASDIRECTED [place] Last Admin: 03/29/19 06:01 Dose: 125 mls/hr Infusion: 03/29/19 03:40 Dose: 125 mls/hr Admin: 03/28/19 19:40 Dose: 125 mls/hr Morphine Sulfate (Morphine) 2 mg IVPUSH Q2H PRN PRN Reason: Pain (severe 7-10) Sodium Chloride (Saline Flush) 10 ml FLUSH ASDIRECTED PRN PRN Reason: Keep Vein Open Last Admin: 03/29/19 02:50 Dose: 10 ml Admin: 03/29/19 02:17 Dose: 10 ml Admin: 03/28/19 20:29 Dose: 10 ml Admin: 03/28/19 20:01 Dose: 10 ml Admin: 03/28/19 17:01 Dose: 10 ml Admin: 03/28/19 14:38 Dose: 10 ml Admin: 03/28/19 08:18 Dose: 10 ml - Assessment Assessment (Free Text/Narrative):: Doing well - Plan Plan (Free Text/Narrative):: Ready for discharge, will use OTC pain meds
[2019-03-29 10:29] VITALS: BP 95/54
== END 2019-03-29 08:55 | disposition home or self-care (01) ==
LOC: FB.ED 22:28 → FB.MS 03-28 03:06
PROVIDERS: ADMIT Emergency Medicine; ATTEND Surgery
DX: K80.12 Calculus of gallbladder with acute and chronic cholecystitis without obstruction (principal); E11.9 Type 2 diabetes mellitus without complications; E78.00 Pure hypercholesterolemia, unspecified; K21.9 Gastro-esophageal reflux disease without esophagitis; M19.90 Unspecified osteoarthritis, unspecified site; E66.9 Obesity, unspecified; Z68.42 Body mass index [BMI] 45.0-49.9, adult; Z79.84 Long term (current) use of oral hypoglycemic drugs; Z79.899 Other long term (current) drug therapy
CPT/HCPCS: 00790-QZ; 36415; 74150; 76705; 80048; 80076; 82150; 83605; 85025; 87070; 87075; 87077; 87205; 88304; 94150; 96361; 96365; 96372; 96376; 99285; 99285-25; A9270-GY; G0378; J0131; J0330; J1100; J1170; J1200; J1885; J2250; J2270; J2405; J2543; J2704; J2710; J3010; J3490; J7050; J7120

== ENCOUNTER 2021-02-25 05:28 | Emergency (ER) | payer MEDICARE, OTHER ==
[2021-02-25] MEDS ORDERED: Acetaminophen/HYDROcodone 325-5 MG Tab PO ONE (05:29)
[2021-02-25] MEDS ORDERED: Sulfamethoxazole/Trimethoprim 800-160 MG Tab PO ONE (05:29)
--- NOTE | 2021-02-25 06:04 | EDM.PDOC ---
ED HPI GENERAL MEDICAL PROBLEM - General Chief Complaint: Upper Extremity Injury/Pain Stated Complaint: ARM Time Seen by Provider: 02/25/21 05:50 Source of Information: Reports: Patient History Limitations: Reports: No Limitations - History of Present Illness INITIAL COMMENTS - FREE TEXT/NARRATIVE: 61-year-old female who reports she awoke at 3 AM yesterday with pain in her left shoulder. The pain was worse with any movement of her shoulder and it has worsened over time to the point of where she cannot move her shoulder at all without severe pain. In fact, even at rest the pain is severe. She would rated as a 10/10. It is worse with palpation and with movement. There is no shortness of breath, neck or jaw pain. She has had similar type pain as this in the past and has been treated with a steroid shot with relief of her symptoms. There have been no fevers or chills. No other joint pain. She has normal sensation and normal function in her left hand. There is no back pain. No fevers or chills. She has been able to eat and drink normally but the pain is making her miserable and she cannot even sleep secondary to the pain. Ears been no trauma to the area. No repetitive use of the arm. There are no other associated signs or symptoms. There are no other modifying factors. Just as the patient was being discharged she did bring up that she had been having urgency, frequency and dysuria. She actually states is a question as "Will this medication make my urinary tract infection worse?". She has not been seen by any medical personnel for a urinary tract infection but she was just referring to the fact that she had symptoms of a UTI. She has no abdominal or back pain. Reports that the symptoms began 2-3 days ago Onset: Other (3 AM yesterday) Duration: Getting Worse Location: Reports: Upper Extremity, Left (Left shoulder) Quality: Reports: Ache, Sharp, Throbbing Severity: Severe Improves with: Reports: None Worsens with: Reports: Other (Palpation), Movement Context: Reports: Other (As above) Associated Symptoms: Reports: No Other Symptoms Treatments CRITICAL CARE SPECIALIST: Reports: Heat Therapy, NSAIDS (Ibuprofen) left shoulder Pain Score (Numeric/FACES): 10 - Related Data Allergies Allergy/AdvReac Type Severity Reaction Status Date / Time No Known Allergies Allergy Verified 03/27/19 23:18 Home Meds: Home Meds Ibuprofen 400 mg PO DAILY PRN 05/13/17 [History] Omeprazole 20 mg PO DAILY 05/13/17 [History] atorvaSTATin [Lipitor] 10 mg PO BEDTIME 05/13/17 [History] metFORMIN [Glucophage XR] 500 mg PO BEDTIME 05/13/17 [History] Acetaminophen/HYDROcodone [[place] 325-5 MG] 1 - 2 tab PO Q6H PRN #6 tab 02/25/21 [Rx] Sulfamethoxazole/Trimethoprim [Bactrim Ds Tablet] 1 each PO BID #4 tablet 02/25/21 [Rx] methylPREDNISolone [Medrol Dose Pack] 4 mg PO ASDIRECTED #1 dospk 02/25/21 [Rx] Past Medical History Cardiovascular History: Reports: High Cholesterol Gastrointestinal History: Reports: Gastritis, GERD Musculoskeletal History: Reports: Arthritis Endocrine/Metabolic History: Reports: Diabetes, Type II, Obesity/BMI 30+ - Infectious Disease History Infectious Disease History: Reports: Chicken Pox - Past Surgical History GI Surgical History: Reports: Cholecystectomy, EGD Female Surgical History: Reports: Tubal Ligation Musculoskeletal Surgical History: Reports: 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 Review of Systems - Review of Systems Review Of Systems: See Below Constitutional: Reports: No Symptoms Eyes: Reports: No Symptoms Ears: Reports: No Symptoms Nose: Reports: No Symptoms Mouth/Throat: Reports: No Symptoms Respiratory: Reports: No Symptoms Cardiovascular: Reports: No Symptoms GI/Abdominal: Reports: No Symptoms Genitourinary: Reports: Dysuria, Painful Urination, Other (Frequency and urgency.) Musculoskeletal: Reports: Shoulder Pain (Left shoulder pain) Skin: Reports: No Symptoms Neurological: Reports: No Symptoms Psychiatric: Reports: No Symptoms ED EXAM, GENERAL - Physical Exam Exam: See Below Exam Limited By: No Limitations General Appearance: Alert, Moderate Distress (Appears in acute pain.) Eye Exam: Bilateral Eye: EOMI, Normal Inspection (Sclera are anicteric) Ears: Normal External Exam, Hearing Grossly Normal Ear Exam: Bilateral Ear: Auricle Normal Nose: Normal Inspection, Normal Mucosa, No Blood Throat/Mouth: Normal Inspection, Normal Lips, Normal Oropharynx, Normal Voice, No Airway Compromise Head: Atraumatic, Normocephalic Neck: Normal Inspection, Supple, Non-Tender, Full Range of Motion Respiratory/Chest: No Respiratory Distress, Lungs Clear, Normal Breath Sounds, No Accessory Muscle Use, Chest Non-Tender Cardiovascular: Normal Peripheral Pulses, Regular Rate, Rhythm, No Murmur Peripheral Pulses: 2+: Radial (L), Radial (R) GI/Abdominal: Normal Bowel Sounds, Soft, Non-Tender Back Exam: Normal Inspection. No: CVA Tenderness (R), CVA Tenderness (L) Extremities: No Pedal Edema, Normal Capillary Refill, Limited Range of Motion (Of left shoulder area and pain. There is tenderness to palpation around the anterior left shoulder.) Neurological: Alert, Oriented, CN II-XII Intact, Normal Cognition, No Motor/Sensory Deficits Psychiatric: Normal Affect Skin Exam: Warm, Dry, Intact, Normal Color, No Rash Course - Vital Signs Last Recorded V/S: Last Vital Signs Temp 36.9 C 02/25/21 05:28 Pulse 92 02/25/21 05:28 Resp 17 02/25/21 05:28 BP 157/75 H 02/25/21 05:28 Pulse Ox 96 02/25/21 05:28 - Orders/Labs/Meds Labs: Laboratory Tests 02/25/21 Range/Units 06:33 Urine Color Yellow (YELLOW) Urine Appearance Slightly cloudy (CLEAR) Urine pH 6.0 (5.0-6.5) Ur Specific [place] 1.020 (1.010-1.025) Urine Protein Negative (NEGATIVE) mg/dL Urine Glucose (UA) Normal (NORMAL) mg/dL Urine Ketones Negative (NEGATIVE) mg/dL Urine Occult Blood Trace (NEGATIVE) Urine Nitrite Negative (NEGATIVE) Urine Bilirubin Negative (NEGATIVE) Urine Urobilinogen 1 H (NEGATIVE) mg/dL Ur Leukocyte Esterase Large H (NEGATIVE) Urine RBC 0-5 (0-5) Urine WBC 10-20 H (0-5) Ur Squamous Epith Cells Moderate H (NS,R,O) Urine Bacteria Moderate H (NS) Urine Mucus Few H (NS) Meds: Medications Discontinued Medications Generic Name Dose Route Start Last Admin Trade Name Freq PRN Reason Stop Dose Admin Prednisone 60 mg 02/25/21 06:18 02/25/21 06:23 Prednisone 20 Mg Tab PO 02/25/21 06:19 60 mg ONETIME ONE Administration - Re-Assessments/Exams Free Text/Narrative Re-Assessment/Exam: 02/25/21 06:15: Patient with what appears to be bursitis of her left shoulder. It is completely reproducible with palpation and with any attempts at movement of her shoulder. I think this rules out any potential cardiac problem. This is something that she has had before and has been labeled as bursitis and responded well apparently to steroids. I will give the patient prednisone 60 mg orally now and I will give her prescription for Medrol Dosepak that she should start tomorrow morning. I will also give her a take home pack of hydrocodone and a prescription for 6 more tablets. The patient is comfortable with this plan for discharge. Precautions and reasons for return to the emergency department were discussed with the patient while she was in the emergency department were detailed in the patient's discharge instructions. 02/25/21 06:48: As the patient was being readied for discharge she informed us that she was having urgency, frequency and dysuria. A urine was sent for checking and it did show some evidence of a UTI. I will therefore place the patient on Bactrim DS for 7 days. We have a take home pack that has 10 tablets that would be for 5 days worsened therapy and I will send a prescription for an additional 4 tablets to complete the seven-day course. Departure - Departure Time of Disposition: 06:50 Disposition: Home, Self-Care 01 Condition: Good (Stable) Clinical Impression: Bursitis of left shoulder UTI (urinary tract infection) Qualifiers: Urinary tract infection type: acute cystitis Hematuria presence: without hematuria Qualified Code(s): N30.00 - Acute cystitis without hematuria - Discharge Information Prescriptions: Sulfamethoxazole/Trimethoprim [Bactrim Ds Tablet] 1 each PO BID #4 tablet methylPREDNISolone [Medrol Dose Pack] 4 mg PO ASDIRECTED #1 dospk Acetaminophen/HYDROcodone [[place] 325-5 MG] 1 - 2 tab PO Q6H PRN #6 tab PRN Reason: Moderate to severe pain Instructions: Bursitis, [id number], Urinary Tract Infection, Adult, [id number] Referrals: PCP,None [Primary Care Provider] - Forms: ED Department Discharge Additional Instructions: You appear to have a bursitis of your left shoulder. This is an inflammation of the bursa or "shock absorbing pad" around your left shoulder. I have given you medication to try to decrease the inflammation and sent to with prescription for a 1 week Dosepak of this medication (Medrol Dosepak). You need to start this medication with your first dose tomorrow, 02/26/2021. I have also sent you with a take home pack of hydrocodone 5/325. You should take this medication as needed for moderate to severe pain. You cannot take Tylenol and this medication together as this medication has Tylenol within it. I have also given you a prescription for an additional 6 tablets that you can take as needed for moder ate to severe pain. Back to the emergency department for pain, shortness of breath, severe weakness, fever, redness in the area of your shoulder or any other concerning signs or symptoms. You also appear to have a urinary tract infection. Neck the medication as prescribed (Bactrim DS). The take-home pack that you were given has 10 tablets for 5 days worth of treatment. I also gave you a prescription for an additional 4 tablets because you need to complete 7 days of treatment. Start the additional tablets of the Bactrim after you have completed the take-home pack. Sepsis Event Note (ED) - Evaluation Sepsis Screening Result: No Definite Risk - Focused Exam Vital Signs: Vital Signs Temp Pulse Resp BP Pulse Ox 02/25/21 05:28 36.9 C 92 17 157/75 H 96
[2021-02-25] MEDS: predniSONE 20 MG Tab PO ONE (06:23)
[2021-02-25 07:16] VITALS: BP 136/54; PULSE 88
== END 2021-02-25 07:05 | disposition home or self-care (01) ==
LOC: FB.ED 05:28
DX: M75.52 Bursitis of left shoulder (principal); N30.00 Acute cystitis without hematuria; E11.9 Type 2 diabetes mellitus without complications; K21.9 Gastro-esophageal reflux disease without esophagitis; E66.9 Obesity, unspecified; Z79.84 Long term (current) use of oral hypoglycemic drugs; Z79.899 Other long term (current) drug therapy; Z68.42 Body mass index [BMI] 45.0-49.9, adult
CPT/HCPCS: 81001; 87086; 87088; 87186; 99283; A9270; J7512

== ENCOUNTER 2021-06-02 05:28 | Emergency (ER) | payer MEDICARE ==
[2021-06-02 05:42] VITALS: BP 161/85; PULSE 80
--- NOTE | 2021-06-02 06:19 | EDM.PDOC ---
ED HPI GENERAL MEDICAL PROBLEM - General Chief Complaint: Genitourinary Problem Stated Complaint: BLADDER INFECTION/ UTI Time Seen by Provider: 06/02/21 06:15 Source of Information: Reports: Patient History Limitations: Reports: No Limitations - History of Present Illness INITIAL COMMENTS - FREE TEXT/NARRATIVE: 61-year-old female who reports 5 days ago developed urgency, frequency and some pain with urination. The symptoms resolved 2 days ago and she had no more urinary symptoms until 3 AM today. She does report that she was having some muscle pains yesterday and she has had some back pains in her mid back. She also has had some abdominal pains but these abdominal pains and back pains have been ongoing for the past year. Beginning at 3 AM today, she had marked increase in burning with urination and frequency and she has not really slept since awakening at 3 AM with these symptoms. No fevers or chills. No nausea or vomiting. She reports that the pain is a burning pain and she rates it as a 3- 4/10. She also noticed some blood in her urine morning as well. She has been able to eat and drink normally. No weakness or dizziness. There are no other associated signs or symptoms. There are no other modifying factors. Onset: Other (5 days ago but resolved and came back at 3 AM today.) Duration: Getting Worse Location: Reports: Other (Genitourinary) Quality: Reports: Burning Severity: Moderate Improves with: Reports: None Worsens with: Reports: Other (With urination) Context: Reports: Other (As above) Associated Symptoms: Reports: No Other Symptoms (Except as above) Treatments GOLD CUTTER: Reports: Other (see below) (Nothing.) Bladder Pain Score (Numeric/FACES): 3 - Related Data Allergies Allergy/AdvReac Type Severity Reaction Status Date / Time No Known Allergies Allergy Verified 03/27/19 23:18 Home Meds: Home Meds Ibuprofen 400 mg PO DAILY PRN 05/13/17 [History] metFORMIN [Glucophage XR] 500 mg PO BEDTIME 05/13/17 [History] Esomeprazole [NexIUM] 40 mg PO DAILY 06/02/21 [History] Meloxicam 7.5 mg PO DAILY PRN 06/02/21 [History] Phenazopyridine HCl [Pyridium] 200 mg PO TID PRN #9 tablet 06/02/21 [Rx] Pravastatin [Pravachol] 40 mg PO BEDTIME 06/02/21 [History] Sulfamethoxazole/Trimethoprim [Bactrim Ds Tablet] 1 each PO BID #14 tablet 06/02/21 [Rx] Past Medical History Cardiovascular History: Reports: High Cholesterol Gastrointestinal History: Reports: Fatty Liver, Gastritis, GERD Genitourinary History: Reports: Other (See Below) Other Genitourinary History: UTI Musculoskeletal History: Reports: Arthritis Endocrine/Metabolic History: Reports: Diabetes, Type II, Obesity/BMI 30+ - Infectious Disease History Infectious Disease History: Reports: Chicken Pox - Past Surgical History GI Surgical History: Reports: Cholecystectomy, EGD Female Surgical History: Reports: Tubal Ligation Musculoskeletal Surgical History: Reports: Amputation Social & Family History - Tobacco Use Tobacco Use Status *Q: Never Tobacco User - Caffeine Use Caffeine Use: Reports: None - Alcohol Use Alcohol Use History: No - Recreational Drug Use Recreational Drug Use: No - Living Situation & Occupation Living situation: Reports: ED ROS GENERAL - Review of Systems Review Of Systems: See Below Constitutional: Denies: Fever, Chills HEENT: Denies: Throat Pain, Throat Swelling Respiratory: Denies: Shortness of Breath, Cough Cardiovascular: Denies: Chest Pain, Palpitations Endocrine: Denies: Fatigue GI/Abdominal: Denies: Nausea, Vomiting : Reports: Dysuria, Frequency, Hematuria. Denies: Flank Pain Musculoskeletal: Reports: Back Pain, Muscle Pain Skin: Denies: Diaphoresis, Rash Neurological: Denies: Dizziness, Headache Psychiatric: Denies: Anxiety Hematologic/Lymphatic: Denies: Easy Bleeding, Easy Bruising ED EXAM, RENAL/ - Physical Exam Exam: See Below Exam Limited By: No Limitations General Appearance: Alert, No Apparent Distress, Obese Eye Exam: Bilateral Eye: EOMI, Normal Inspection, PERRL Ears: Normal External Exam, Hearing Grossly Normal Nose: Normal Inspection, Normal Mucosa, No Blood Throat/Mouth: Normal Inspection, Normal Lips, Normal Oropharynx, Normal Voice, No Airway Compromise Head: Atraumatic, Normocephalic Neck: Normal Inspection, Supple, Non-Tender, Full Range of Motion Respiratory/Chest: No Respiratory Distress, Lungs Clear, Normal Breath Sounds, No Accessory Muscle Use, Chest Non-Tender Cardiovascular: Normal Peripheral Pulses, Regular Rate, Rhythm, No Murmur GI/Abdominal: Normal Bowel Sounds, Soft, Non-Tender, No Mass Back Exam: Normal Inspection. No: CVA Tenderness (R), CVA Tenderness (L) Extremities: Normal Inspection, Normal Range of Motion, Non-Tender, No Pedal Edema, Normal Capillary Refill Neurological: Alert, Oriented, CN II-XII Intact, Normal Cognition, No Motor/Sensory Deficits Psychiatric: Normal Affect, Normal Mood Skin Exam: Warm, Dry, Intact, Normal Color, No Rash Course - Vital Signs Last Recorded V/S: Last Vital Signs Temp 36.4 C 06/02/21 05:40 Pulse 80 06/02/21 05:40 Resp 18 06/02/21 05:40 BP 161/85 H 06/02/21 05:40 Pulse Ox 96 06/02/21 05:40 - Orders/Labs/Meds Orders: Active Orders 24 hr Category Date Time Status CULTURE URINE [RM] Stat Lab 06/02/21 05:46 Received Labs: Laboratory Tests 06/02/21 Range/Units 05:46 Urine Color Yellow (YELLOW) Urine Appearance Cloudy (CLEAR) Urine pH 5.0 (5.0-6.5) Ur Specific [place] 1.025 (1.010-1.025) Urine Protein 30 H (NEGATIVE) mg/dL Urine Glucose (UA) Normal (NORMAL) mg/dL Urine Ketones 15 H (NEGATIVE) mg/dL Urine Occult Blood Large H (NEGATIVE) Urine Nitrite Negative (NEGATIVE) Urine Bilirubin Negative (NEGATIVE) Urine Urobilinogen Normal (NEGATIVE) mg/dL Ur Leukocyte Esterase Large H (NEGATIVE) Urine RBC 50-75 H (0-5) Urine WBC >100 H (0-5) Ur Squamous Epith Cells Few H (NS,R,O) Urine Bacteria Moderate H (NS) Meds: Medications Discontinued Medications Generic Name Dose Route Start Last Admin Trade Name Freq PRN Reason Stop Dose Admin Phenazopyridine HCl 190 mg 06/02/21 06:32 06/02/21 06:38 Phenazopyridine 95 Mg Tab PO 06/02/21 06:33 190 mg ONETIME ONE Administration Trimethoprim/Sulfamethoxazole 2 tab 06/02/21 06:34 06/02/21 06:38 Sulfamethoxazole/Trimethoprim 800-160 Mg Tab PO 06/02/21 06:35 2 tab ONETIME ONE Administration - Re-Assessments/Exams Free Text/Narrative Re-Assessment/Exam: 06/02/21 06:30: Patient appears nontoxic. She has signs and symptoms of a UTI. Her urinalysis does show white cells and red cells. She has some intermittent abdominal and back pain she has had these pains for well over a year and the urinary symptoms just began 5 days ago. I will treat the patient with Bactrim DS twice a day for 7 days and she will also be given a prescription for Pyridium for her urinary discomfort. She is to increase her fluid intake. Precautions and reasons for return to the emergency department were discussed with the patient while she was in the emergency department and were detailed in the patient's discharge instructions. Departure - Departure Time of Disposition: 06:40 Disposition: Home, Self-Care 01 Condition: Good Clinical Impression: UTI (urinary tract infection) Qualifiers: Urinary tract infection type: site unspecified Hematuria presence: with hematuria Qualified Code(s): N39.0 - Urinary tract infection, site not specified - Discharge Information Prescriptions: Sulfamethoxazole/Trimethoprim [Bactrim Ds Tablet] 1 each PO BID #14 tablet Phenazopyridine HCl [Pyridium] 200 mg PO TID PRN #9 tablet PRN Reason: Urinary discomfort Instructions: Urinary Tract Infection, Adult, [id number] Referrals: Lupe Wang NP [Primary Care Provider] - Forms: ED Department Discharge Additional Instructions: You have a urinary tract infection. Increase your fluid intake. Rest. Medications as prescribed (Bactrim DS, Pyridium 200 mg). Follow-up with your primary provider as needed. Back to the emergency department for high fever, unrelenting vomiting, severe weakness or any other concerning signs or symptoms. Sepsis Event Note (ED) - Evaluation Sepsis Screening Result: No Definite Risk - Focused Exam Vital Signs: Vital Signs Temp Pulse Resp BP Pulse Ox 06/02/21 05:40 36.4 C 80 18 161/85 H 96 - My Orders Last 24 Hours: My Active Orders 06/02/21 05:46 CULTURE URINE [RM] Stat - Assessment/Plan Last 24 Hours: My Active Orders 06/02/21 05:46 CULTURE URINE [RM] Stat
[2021-06-02] MEDS ORDERED: Phenazopyridine 95 MG Tab PO ONE (06:32)
[2021-06-02] MEDS ORDERED: Sulfamethoxazole/Trimethoprim 800-160 MG Tab PO ONE (06:34)
== END 2021-06-02 06:52 | disposition home or self-care (01) ==
LOC: FB.ED 05:28
DX: N39.0 Urinary tract infection, site not specified (principal); R31.9 Hematuria, unspecified; E78.00 Pure hypercholesterolemia, unspecified; K21.9 Gastro-esophageal reflux disease without esophagitis; M19.90 Unspecified osteoarthritis, unspecified site; E11.9 Type 2 diabetes mellitus without complications; E66.9 Obesity, unspecified; Z79.84 Long term (current) use of oral hypoglycemic drugs; Z79.899 Other long term (current) drug therapy
CPT/HCPCS: 81001; 87086; 99283; A9270

== ENCOUNTER 2024-06-27 22:05 | Emergency (ER) | payer MEDICARE ==
[2024-06-27 22:37] VITALS: BP 157/84; PULSE 106
[2024-06-27] MEDS ORDERED: Sodium Chloride 0.9% 10 ML Syringe FLUSH PRN (22:49)
[2024-06-27 23:14] LABS: HEMATOCRIT 41.6 % (34.2-48.2); HEMOGLOBIN 14.1 g/dL (11.4-15.5); MEAN CORPUSCULAR HEMOGLOBIN 27.2 pg (23.9-33.9); MEAN CORPUSCULAR HGB CONC 33.9 g/dL (31.9-34.8); MEAN CORPUSCULAR VOLUME 80.2 fL (76.7-100.5); PLATELET COUNT,PLT 192 x10(3)uL (151-488); RED BLOOD CELL COUNT 5.19 x10(6)uL (3.60-5.20); RED CELL DISTRIBUTION WIDTH 15.4 % (12.3-16.5); WHITE BLOOD CELL COUNT,WBC 15.9 x10-3/uL (3.0-10.3)
[2024-06-27] MEDS: Ondansetron 4 MG/2 ML SDV IVPUSH ONE (23:15)
[2024-06-27] MEDS: Sodium Chloride 0.9% 1,000 ML IV ONE (23:15)
[2024-06-27 23:21] LABS: BLOOD UREA NITROGEN,BUN 22 mg/dL (7-18); BUN/CREATININE RATIO 31.4 (9-20); CALCIUM 8.8 mg/dL (8.6-10.2); CARBON DIOXIDE,CO2 28 mmol/L (21-32); CHLORIDE,CL 106 mmol/L (100-110); CREATININE 0.7 mg/dL (0.55-1.02); EST CRCL DRUG DOSING (CG) 61.27 mL/min; ESTIMATED GFR 97 mL/min (>60); GLUCOSE RANDOM 150 mg/dL (80-116); POTASSIUM,K 3.9 mmol/L (3.5-5.3); SODIUM,NA 141 mmol/L (135-145)
[2024-06-27 23:22] LABS: BAND PERCENT MAN 4 % (0-6); LYMPHOCYTES PERCENT MAN 11 % (13-37); MONOCYTES PERCENT MAN 6 % (4-12); SEG NEUTROPHILS PERCENT MAN 77 % (46-82)
[2024-06-27 23:23] LABS: EOSINOPHILS PERCENT MAN 2 % (0-5)
[2024-06-27 23:24] LABS: C-REACTIVE PROTEIN 0.61 mg/dL (<0.50)
[2024-06-27 23:27] LABS: A/G RATIO 0.9; ALANINE AMINOTRANSFERASE,ALT 19 U/L (12-36); ALBUMIN 3.8 g/dL (3.2-4.6); ALKALINE PHOSPHATASE 116 IU/L (56-112); ASPARTATE AMNIOTRANSFERASE,AST 18 IU/L (5-25); BILIRUBIN TOTAL 0.6 mg/dL (0.1-1.3)
[2024-06-27 23:30] LABS: LACTIC ACID 0.9 mmol/L (0.4-2.0)
== END 2024-06-28 01:03 | disposition home or self-care (01) ==
LOC: FB.ED 22:05
DX: A05.9 Bacterial foodborne intoxication, unspecified (principal); E78.00 Pure hypercholesterolemia, unspecified; E11.9 Type 2 diabetes mellitus without complications; Z90.49 Acquired absence of other specified parts of digestive tract; Z79.84 Long term (current) use of oral hypoglycemic drugs; Z79.82 Long term (current) use of aspirin; Z79.899 Other long term (current) drug therapy
CPT/HCPCS: 36415; 80053; 83605; 83690; 85025; 86140; 96361; 96374; 99283; 99284-25; J2405; J7030

== ENCOUNTER 2025-09-13 09:34 | Emergency (ER) | payer MEDICARE ==
[2025-09-13] MEDS ORDERED: Sodium Chloride 0.9% 10 ML Syringe FLUSH PRN (09:51)
[2025-09-13 10:25] LABS: BASOPHILS ABSOLUTE AUTO 0.1 x10-3/uL (0.0-0.1); BASOPHILS PERCENT AUTO 0.6 % (0.2-1.5); EOSINOPHILS ABSOLUTE AUTO 0.2 x10-3/uL (0.0-0.8); EOSINOPHILS PERCENT AUTO 2.9 % (0.6-8.1); LYMPHOCYTES ABSOLUTE AUTO 3.1 x10-3/uL (1.0-4.4); LYMPHOCYTES PERCENT AUTO 36.0 % (18.4-52.1); MEAN PLATELET VOLUME 10.4 fL (7.1-12.4); MONOCYTES ABSOLUTE AUTO 0.5 x10-3/uL (0.3-1.0); MONOCYTES PERCENT AUTO 5.5 % (4.4-15.7); NEUTROPHILS ABSOLUTE AUTO 4.7 x10-3/uL (1.5-6.3); NEUTROPHILS PERCENT AUTO 55.0 % (30.8-76.2); PLATELET COUNT,PLT 187 x10(3)uL (151-488); RED BLOOD CELL COUNT 5.49 x10(6)uL (3.60-5.20); RED CELL DISTRIBUTION WIDTH 15.0 % (12.3-16.5); WHITE BLOOD CELL COUNT,WBC 8.5 x10-3/uL (3.0-10.3)
[2025-09-13 10:26] LABS: BLOOD UREA NITROGEN,BUN 17 mg/dL (7-18); CARBON DIOXIDE,CO2 26 mmol/L (21-32); CHLORIDE,CL 105 mmol/L (100-110); CREATININE 0.5 mg/dL (0.55-1.02); ESTIMATED GFR 104 mL/min (>60); GLUCOSE RANDOM 119 mg/dL (80-116); POTASSIUM,K 3.7 mmol/L (3.5-5.3); SODIUM,NA 140 mmol/L (135-145)
[2025-09-13] MEDS: Ondansetron 4 MG/2 ML SDV IVPUSH ONE (10:28)
[2025-09-13] MEDS: Ketorolac 30 MG/ML SDV IVPUSH ONE (10:28)
[2025-09-13 10:32] LABS: GLUCOSE,URINE NORMAL (NORMAL); OCCULT BLOOD,URINE LARGE (NEGATIVE)
[2025-09-13 10:32] LABS: A/G RATIO 1.1; ALANINE AMINOTRANSFERASE,ALT 16 U/L (12-36); ASPARTATE AMNIOTRANSFERASE,AST 14 IU/L (5-25); BILIRUBIN TOTAL 0.7 mg/dL (0.1-1.3); PROTEIN TOTAL,TP 7.9 g/dL (6.0-8.0)
[2025-09-13 10:45] LABS: APPEARANCE,URINE SLIGHTLY CLOUDY (CLEAR)
[2025-09-13 10:48] LABS: SQUAMOUS EPITHELIAL CELLS,UR FEW (NS,R,O)
[2025-09-13 12:15] VITALS: PULSE 70
[2025-09-13 13:50] VITALS: BP 121/63
== END 2025-09-13 13:45 | disposition home or self-care (01) ==
LOC: FB.ED 09:34
DX: N13.2 Hydronephrosis with renal and ureteral calculous obstruction (principal); E11.9 Type 2 diabetes mellitus without complications; K21.9 Gastro-esophageal reflux disease without esophagitis; Z90.49 Acquired absence of other specified parts of digestive tract; Z79.84 Long term (current) use of oral hypoglycemic drugs; Z79.899 Other long term (current) drug therapy
CPT/HCPCS: 36415; 74176; 80053; 81001; 83605; 83690; 83735; 85025; 86140; 96361; 96374; 96375; 99284; A9270; J2405; J7030; J1885